=== PATIENT | male | born 1965 | race Caucasian/White ===

== ENCOUNTER 2017-12-27 08:08 | Day surgery (SDC) | payer MEDICAID ==
[~2017-12-27 08:08] MED LIST: ACETAMINOPHEN 1,000 MG/100 ML BTL IV ONE
[2017-12-27] MEDS ORDERED: FENTANYL PF 100MCG/2ML VIAL IV ONE (08:09)
[2017-12-27] MEDS ORDERED: LIDOCAINE 1% MDV (10MG/ML) 20ML VIAL SQ ONE (08:09)
[2017-12-27] MEDS ORDERED: PROPOFOL 10 MG/ML VIAL IV ONE (08:09)
[2017-12-27] MEDS ORDERED: SEVOFLURANE 250 ML INH ONE (08:09)
[2017-12-27] MEDS ORDERED: MIDAZOLAM HCL 2MG/2ML VIAL IV ONE (08:09)
[2017-12-27] MEDS ORDERED: ONDANSETRON HCL IV 4 MG/2 ML VIAL IVP ONE (08:09)
--- NOTE | 2017-12-28 12:50 | Operative Note ---
DATE OF SURGERY: 12/27/2017 Surgeon: Jake Bowens DO PREOPERATIVE DIAGNOSES: 1. Torn medial meniscus of the right knee. 2. Chondromalacia of the right knee. POSTOPERATIVE DIAGNOSES: 1. Torn lateral meniscus, right knee. 2. Synovitis, right knee. 3. Osteoarthritis, right knee. 4. Chondrocalcinosis of the right knee. OPERATION: 1. Arthroscopic partial lateral meniscectomy, right knee. 2. Arthroscopic partial synovectomy, right knee. 3. Arthroscopic chondroplasty of lateral femoral condyle, right knee. DESCRIPTION OF PROCEDURE: This 52-year-old male was taken to the operating room and placed in the supine position on the operating room table. General anesthesia was induced. The right lower extremity was elevated. It was exsanguinated and the tourniquet inflated to 300 mmHg. Arthroscopic knee ortiz applied. Right knee prepped with Hibiclens and draped in the usual sterile fashion. An inferolateral portal was established for the 4 mm arthroscope, and initial evaluation of the joint demonstrated normal appearance of the suprapatellar pouch. However, there was evidence of chondrocalcinosis on the synovium. I did not see any loose joint bodies. There was a grade 2 chondromalacia of the trochlea and the patella but it was not unstable and it was not further disturbed. Partial synovectomy was performed. The scope was then scanned down the medial gutter and into the medial compartment. The patient did not demonstrate any evidence of tears of the medial compartment and the articular cartilage appeared essentially normal other than minimal scuffing. The intracondylar notch was examined and found to be normal. The lateral compartment was entered and severe full-thickness articular cartilage loss was noted in the lateral compartment with a full-thickness defect on the medial femoral condyle as well as the tibial plateau. Marked disruption of the lateral meniscus was also identified. Chondrocalcinosis deposited on the lateral meniscus as well. A chondroplasty was performed around the edges to stabilize the articular cartilage there, and partial lateral meniscectomy was performed to remove flap tears and smooth out the contour. The meniscus originally being the least of his problems was stable but a relatively small peripheral rim was noted throughout. The patient did have severe full-thickness articular cartilage loss noted in the lateral compartment as described above. The joint was then copiously irrigated and suctioned with all areas being reexamined and no additional findings were present. The joint was suctioned. The instruments removed. The portals infiltrated with 0.25% Marcaine with epinephrine. Sterile dressings applied. Tourniquet and knee ortiz released and the patient taken to the recovery room in satisfactory condition. GROSS PATHOLOGY: This patient demonstrated advanced osteoarthritis of the lateral compartment with full-thickness articular cartilage loss being noted on both surfaces which covered the entire lateral tibial plateau and the entire weightbearing surface of the lateral femoral condyle. Tear of the lateral meniscus was present. Chondrocalcinosis also noted as described above. CC: DO GUNNER Romo
== END 2017-12-27 10:55 | disposition home or self-care (01) ==
LOC: SUR 08:08
PROVIDERS: ATTEND Orthopaedic Surgery
DX: S83.281A Other tear of lateral meniscus, current injury, right knee, initial encounter (principal); M65.861 Other synovitis and tenosynovitis, right lower leg; M17.11 Unilateral primary osteoarthritis, right knee; M11.261 Other chondrocalcinosis, right knee; E11.9 Type 2 diabetes mellitus without complications; Z79.84 Long term (current) use of oral hypoglycemic drugs
CPT/HCPCS: J2405

== ENCOUNTER 2018-01-28 13:30 | Inpatient (IN) | payer MEDICAID ==
[2018-02-05] MEDS ORDERED: ACETAMINOPHEN 1,000 MG/100 ML BTL IV ONE (06:00)
[2018-02-05] MEDS ORDERED: FAMOTIDINE 20MG TABLET PO ONE (06:00)
[2018-02-05] MEDS ORDERED: CEFAZOLIN 2 Gram 2 GM/50 ML BAG IVPB ONE (06:00)
[2018-02-05] MEDS ORDERED: MECLIZINE 25 MG TABLET PO ONE (06:00)
[2018-02-05] MEDS ORDERED: METOCLOPRAMIDE 10 MG TABLET PO ONE (06:00)
[2018-02-05] MEDS ORDERED: RINGERS SOLUTION,LACTATED 1,000 ML IV PRN (10:27)
[2018-02-05] MEDS ORDERED: OXYCODONE HCL 5 MG TABLET PO PRN ×2 (10:57)
[2018-02-05] MEDS ORDERED: LOPERAMIDE 2 MG CAPSULE PO PRN (10:59)
[2018-02-05] MEDS ORDERED: SENNOSIDES/DOCUSATE SODIUM UD CAPSULE PO PRN (11:00)
[2018-02-05] MEDS ORDERED: AL HYDROX/MAG HYDROX 30ML UD PO PRN (11:00)
[2018-02-05] MEDS ORDERED: DIPHENHYDRAMINE HCL 25 MG CAPSULE PO PRN (11:00)
[2018-02-05] MEDS ORDERED: MAGNESIUM HYDROXIDE 30 ML UDC PO PRN (11:00)
[2018-02-05] MEDS ORDERED: NALOXONE 0.4 MG/1 ML VIAL IVP PRN (11:00)
[2018-02-05] MEDS ORDERED: ONDANSETRON HCL IV 4 MG/2 ML VIAL IVP PRN (11:00)
[2018-02-05] MEDS ORDERED: METOCLOPRAMIDE HCL 10 MG/2 ML VIAL IVP PRN (11:00)
[2018-02-05] MEDS ORDERED: ZOLPIDEM TARTRATE 5 MG TABLET PO PRN (11:00)
[2018-02-05] MEDS ORDERED: TRAMADOL HCL 50 MG TABLET PO PRN ×2 (11:00)
[2018-02-05] MEDS: RINGERS SOLUTION,LACTATED 1,000 ML IV SCH (12:33)
--- NOTE | 2018-02-05 12:50 | Operative Note ---
DATE OF SURGERY: 02/05/2018 Surgeon: Jake Bowens DO PREOPERATIVE DIAGNOSIS: Osteoarthritis of the right knee. POSTOPERATIVE DIAGNOSIS: Osteoarthritis of the right knee. OPERATION: Right total knee arthroplasty. DESCRIPTION OF PROCEDURE: This 52-year-old male was taken to the operating room and placed in the supine position on the operating room table. Spinal anesthesia was induced by the department of anesthesia. The right lower extremity was then elevated. It was prepped with Hibiclens and draped in the usual sterile fashion. It was exsanguinated and the tourniquet inflated to 300 mmHg. All scrub personnel wore personal isolation suits. An anterior longitudinal midline incision was made followed by a medial parapatellar arthrotomy incision. An intracondylar drill hole was made for the intramedullary alignment kriss and a 10 mm 6-degree valgus cut was made on the distal femur. A sizing jig was affixed and a size 70 was seen to be the appropriate size. The 4-in-1 cutting block was then pinned in 3 degrees of external rotation and the appropriate cuts were made. Wafers of bone were removed. We then directed our attention to the proximal tibia, and an extramedullary alignment guide was used to cut the proximal tibia referencing an 8 mm cut off of the denuded bone on the lateral tibial plateau. The cutting block was then set at the appropriate position and subsequently a 3-degree posterior slope cut was made. Wafer of bone was removed. Remnants of the menisci and osteophytes were removed from the posterior aspect of the joint. The tibia was sized to a size 75 and the stem punch was used. Trial components were inserted and a 10 mm bearing was seen to be the appropriate thickness. The patella was cut and restored to anatomic height with a 37 x 8.6 mm patella. The knee was stable throughout the full range of motion. All the trial components were then removed and excess debris was debrided with the pulse lavage and suctioned. The bony surfaces were dried. All components were cemented into place and then the excess cement was removed after the insertion of each component. The tibia was implanted first followed by an insertion of the tibial bearing followed by the femoral component and subsequently the patella. Once the cement had hardened, the knee was again taken through range of motion with excellent stability of the components being identified. Exparel was injected into the posterior, medial, and lateral corners of the joint prior to implantation of the components. Then after the components were in, the remainder was injected into the periosteum and joint capsule of the proximal tibia and distal femur. A drain was placed through a separate stab incision, and the arthrotomy incision was closed with #2 Vicryl, the subcutaneous tissue closed with 0 Vicryl, and the skin was stapled. Sterile dressings with Polar Care were applied and the patient was taken to the recovery room in satisfactory condition. GROSS PATHOLOGY: This patient demonstrated severe osteoarthritis being full-thickness defect on the lateral femoral condyle and lateral tibial plateau with some full-thickness defects noted on the patella in the center of the median ridge. Final components inserted were a [employer] Vanguard size 70 cruciate retaining femur, a 75 tibial baseplate, a 10 mm anterior stabilized E1 bearing, and a 37 x 8.6 mm patella was used. CC: DO GUNNER Romo
[2018-02-05] MEDS ORDERED: TRANEXAMIC ACID 1,000 MG in 0.9 % SODIUM CHLORIDE 100ML 100 ML IVPB ONE (13:00)
[2018-02-05] MEDS: ACETAMINOPHEN 1,000 MG/100 ML BTL IV SCH ×2 (13:27→19:35)
--- NOTE | 2018-02-05 13:44 | Rehab Evaluation ---
Patient Information - Patient Information Diagnosis: R knee OA Ordered Treatment: PT Evaluate and Treat Status: Initial Evaluation Surgery: Yes (R TKA) Date of Surgery: 02/05/18 Past Medical/Surgical Hx: PAST MEDICAL/SURGICAL HISTORY Past Surgical History saray knee scopes radius/ulnar reconstruction left left ear sx as a child c scope x's 2 PMH - Respiratory Hx Respiratory Disorders Yes Hx Pneumonia Yes PMH - Cardiovascular Hx Cardiovascular Disorders No Exercise Tolerance Good PMH - Neuro Hx Neurological Disorders No PMH - GI Hx Gastrointestinal Disorders Yes Hx Gastroesophageal Reflux Yes: on meds good control PMH - Hx Genitourinary Disorders No Comment: on daily Cialis for ED PMH - Endocrine Hx Endocrine Disorders Yes Hx Diabetes Yes: dx'd 8 yrs ago Hx of NIDDM Yes Comment: FBS around 110 A1C 5.9 PMH - Musculoskeletal Hx Musculoskeletal Disorders Yes Hx Arthritis Yes Comment: pain right knee PMH - Psych Hx Psychiatric Problems No PMH - Hematology/Oncology Hx Hematology/Oncology No Disorders Premorbid Status: Detail (Prior to surgery the patient was independent with all mobility) Social History: Detail (The patient lives with spouse in 2 story house with 3 steps at the enterance without railings. The patient's bathroom is equipped with a walk in shower with a shower bench and a standard height toilet. The patient has a standard walker and crutches.) Precautions: [place], Fall, Other (WBAT on the R LE.) - Time With Patient Total Time Spent With Patient (Min): 30 Treatment Procedures: Detail (Initial Evaluation, gait training) Subjective Information - Subjective Information Per Patient (The patient had complaints of R knee pain level 7 at the highest.) Objective Data - Mental Status Patient Orientation: Oriented x3 - Visual Perception Appears within normal limits for therapeutic activities - ROM Not within normal limits (The patient's R knee AROM is limited as to be expected following surgery. All other LE AROM is WNL.) - Strength/Tone Not within normal limits (The patient's R LE strength was not formally tested secondary to s/p surgery, however is functional ie: patient is able to acheive a SLR. The patient's L LE strength was 5/5.) - Bed Mobility Independent (The patient was independent with supine to and from sit transfer and scooting up in bed.) - Transfers Independent (The patient was independent with sit to and from stand transfer and toilet transfer.) - Balance Balance Sitting: Good Balance Standing: Good - Sensation Intact - Gait Detail (The patient ambulated with front wheeled walker, WBAT on the R LE independently 20 feet x 1 with assist of 1 for equipment only.) Therapy Assessment - Therapy Assessment Detail (The patient was independent with bed mobility, transfers and ambulation household distances. The patient declined ambulating a further distance this afternoon due to still feeling minimal numbness in R buttock region. The patient returned to bed with CPM and pressure cuffs in place and call light within reach. Feel the patient will progress well with mobility.) Problem List - Problem List Physical Therapy Problem List: Detail (1) Decreased R knee AROM and strength 2) Non ambulatory on stairs 3) R knee pain) Goals - Goals Physical Therapy Goals: 1) The patient will ambulate with front wheeled walker a distance of 100 feet independently WBAT on the R LE. 2) The patient will ambulate on stairs with supervision for safety. 3) The patient will be independent with HEP of TKA exercises Plan - Plan Physical Therapy Plan: PT 1-2 times a day for gait training on levels and stairs and instruction in HEP until all PT goals have been met.
[2018-02-05] MEDS ORDERED: DEXAMETHASONE 4 MG/ML 1ML VIAL IVP ONE (13:55)
[2018-02-05] MEDS ORDERED: ROPIVACAINE HCL (NAROPIN) /PF 5MG/ML 20ML VIAL IV ONE (13:55)
[2018-02-05] MEDS: HYDROMORPHONE HCL 2 MG/ML VIAL IV PRN ×3 (15:05→22:18)
[2018-02-05] MEDS ORDERED: BUPIVACAINE 0.25% W/EPI MPF 30ML VIAL IVP ONE (15:47)
[2018-02-05] MEDS ORDERED: BUPIVACAINE LIPOSOME 266MG/20ML VIAL IV ONE (15:47)
[2018-02-05] MEDS ORDERED: ONDANSETRON HCL IV 4 MG/2 ML VIAL IVP ONE (16:15)
[2018-02-05] MEDS ORDERED: MIDAZOLAM HCL 2MG/2ML VIAL IV ONE (16:15)
[2018-02-05] MEDS ORDERED: LIDOCAINE 1% MDV (10MG/ML) 20ML VIAL SQ ONE (16:15)
[2018-02-05] MEDS ORDERED: PROPOFOL 10 MG/ML VIAL IV ONE (16:15)
[2018-02-05] MEDS ORDERED: FENTANYL PF 100MCG/2ML VIAL IV ONE (16:15)
[2018-02-05] MEDS: CEFAZOLIN 2 Gram 2 GM/50 ML BAG IVPB SCH (17:01)
[2018-02-05] MEDS: ASPIRIN 325 MG TAB ENTERIC-COATED PO SCH (22:19)
[2018-02-05] MEDS: NICOTINE14 MG/24 HOUR PATCH TD SCH (22:50)
[2018-02-06] MEDS: CEFAZOLIN 2 Gram 2 GM/50 ML BAG IVPB SCH ×2 (00:20→07:54)
[2018-02-06] MEDS: ACETAMINOPHEN 1,000 MG/100 ML BTL IV SCH (01:40)
[2018-02-06] MEDS: HYDROMORPHONE HCL 2 MG/ML VIAL IV PRN ×2 (02:04→05:40)
[2018-02-06] MEDS: RINGERS SOLUTION,LACTATED 1,000 ML IV SCH (05:23)
[2018-02-06 06:13] LABS: HEMATOCRIT 40.4 % (42.0-52.0); HEMOGLOBIN 13.4 gm/dl (14.0-18.0); MEAN CORPUSCULAR HEMOGLOBIN 29.5 pg (27-33); MEAN CORPUSCULAR HGB CONC 33.2 g/dl (32-36); PLATELET COUNT 218 K/uL (130-400); RED BLOOD COUNT 4.54 M/uL (4.40-5.70); RED CELL DISTRIBUTION WIDTH 12.7 % (11.5-14.5); WHITE BLOOD COUNT W/O DIFF 11.9 K/uL (4.2-12.2)
[2018-02-06] MEDS ORDERED: PANTOPRAZOLE SODIUM 40 MG TABLET PO SCH (07:00)
[2018-02-06] MEDS ORDERED: GLIPIZIDE 5 MG TABLET PO SCH (08:00)
[2018-02-06] MEDS ORDERED: METFORMIN 500 MG TABLET PO SCH (08:00)
[2018-02-06] MEDS: ASPIRIN 325 MG TAB ENTERIC-COATED PO SCH (09:44)
[2018-02-06] MEDS: NICOTINE14 MG/24 HOUR PATCH TD SCH (09:46)
--- NOTE | 2018-02-06 10:25 | Rehab Evaluation ---
Patient Information - Patient Information Diagnosis: R knee OA Ordered Treatment: OT Evaluate and Treat Status: Initial Evaluation Surgery: Yes (R TKA) Date of Surgery: 02/05/18 Past Medical/Surgical Hx: PAST MEDICAL/SURGICAL HISTORY Past Surgical History saray knee scopes radius/ulnar reconstruction left left ear sx as a child c scope x's 2 PMH - Respiratory Hx Respiratory Disorders Yes Hx Pneumonia Yes PMH - Cardiovascular Hx Cardiovascular Disorders No Exercise Tolerance Good PMH - Neuro Hx Neurological Disorders No PMH - GI Hx Gastrointestinal Disorders Yes Hx Gastroesophageal Reflux Yes: on meds good control PMH - Hx Genitourinary Disorders No Comment: on daily Cialis for ED PMH - Endocrine Hx Endocrine Disorders Yes Hx Diabetes Yes: dx'd 8 yrs ago Hx of NIDDM Yes Comment: FBS around 110 A1C 5.9 PMH - Musculoskeletal Hx Musculoskeletal Disorders Yes Hx Arthritis Yes Comment: pain right knee PMH - Psych Hx Psychiatric Problems No PMH - Hematology/Oncology Hx Hematology/Oncology No Disorders Premorbid Status: Detail (Prior to surgery the patient was independent with all mobility and I/ADL's.) Social History: Detail (The patient lives with spouse in 2 story house with 3 steps at the enterance without railings. Pt. and spouse live on the main floor. The patient's bathroom is equipped with a walk in shower with a built in shower bench, hand held shower head, and a standard height toilet. The patient has a standard walker and crutches. Pt. has assistance at home if needed (spouse and four other adults).) Precautions: [place], Fall, Other (WBAT on the R LE.) - Time With Patient Total Time Spent With Patient (Min): 20 Treatment Procedures: Detail (OT andres sargent. Session was concluded with pt. seated in arm chair, call button and bedside table within reach.) Subjective Information - Subjective Information Per Patient Objective Data - Pain Pain Present: Yes (RLE) - Mental Status Patient Orientation: Oriented x3 - Visual Perception Appears within normal limits for therapeutic activities - ROM Within normal limits (BUE) - Strength/Tone Within normal limits (BUE 5/5 MMT all planes.) - Coordination Appears within normal limits for therapeutic activities - Transfers Independent (Pt. required min A to get in/out of recliner chair but stated his recliner is different at home and won't have a problem. Once pt. was seated at edge of chair, was Ind. with sit<>stand t/f.) - Balance Balance Sitting: Good Balance Standing: Fair - ADL's/IADL's Detail (Educ. was provided in adaptive dressing techniques. Pt. demo. ability to dress TB Ind. (t-shirt, elastic waist shorts). Pt. stated he has no concerns about performing activities upon returning home, and has help if needed.) Therapy Assessment - Therapy Assessment Detail (No in-pt. OT services recommended at this time. Pt. has assistance at home if needed, a functional environmental set-up, and plans to attend out pt. therapy at [facility]. Educ. was provided to call rehab dept. if questions arise. Pt. stated he has no concerns regarding ability to perform activities at home.) Patient Education - Patient Education Teaching Topic: Exercise/Activity Response: Verbalize Understanding Teaching Method: Discussion Teaching Recipient: Patient Barriers To Learning: None Problem List - Problem List Physical Therapy Problem List: Detail (1) Decreased R knee AROM and strength 2) Non ambulatory on stairs 3) R knee pain) Goals - Goals Physical Therapy Goals: 1) The patient will ambulate with front wheeled walker a distance of 100 feet independently WBAT on the R LE. 2) The patient will ambulate on stairs with supervision for safety. 3) The patient will be independent with HEP of TKA exercises Prognosis - Prognosis Good Plan - Plan Physical Therapy Plan: PT 1-2 times a day for gait training on levels and stairs and instruction in HEP until all PT goals have been met. Occupational Therapy Plan: D/C from in-pt. OT services
[2018-02-06] MEDS ORDERED: OXYCODONE HCL/APAP 5MG/325MG TABLET PO PRN ×2 (10:57)
[2018-02-06] MEDS ORDERED: ACETAMINOPHEN 325 MG TAB PO PRN (11:00)
--- NOTE | 2018-02-06 11:03 | Physical Therapy Tx Note ---
Physical Therapy Tx Note - Treatment Note Tolerated: Good Total Time Spent With Patient: 30 Physical Therapy Tx Note: Detail (The patient was up in a recliner chair when PT arrived. The patient ambulated with standard walker a distance of 52 feet x 1 independently WBAT on the R LE. The patient declined ambulating further distance. The patient ambulated on stairs with supervision for safety only using proper technique with use of one railing and folded walker. The patient completed the following TKA exercises: seated heel slides, quad sets, gluteal sets, hamstring sets, ankle pumps and SLR with use of strap. The patient had difficulty isolating his quad and was unable to complete a SLR without assist today, probably due to increased pain complaints. The patient has met all inpatient PT goals and is discharged from inpatient PT.) Physical Therapy Problem List: Detail (1) Decreased R knee AROM and strength 2) Non ambulatory on stairs 3) R knee pain) Physical Therapy Goals: 1) The patient will ambulate with front wheeled walker a distance of 100 feet independently WBAT on the R LE. ( Goal partially met, patient declined to ambulate further distance). 2) The patient will ambulate on stairs with supervision for safety (Goal met). 3) The patient will be independent with HEP of TKA exercises (Goal met) Physical Therapy Plan: The patient has met all inpatient PT goals and is discharged from inpatient PT. The patient is to continue with outpatient PT.
--- NOTE | 2018-02-07 12:50 | Discharge Summary ---
DATE OF ADMISSION: 02/05/2018 DATE OF DISCHARGE: 02/06/2018 ADMITTING DIAGNOSIS: Osteoarthritis of the right knee. DISCHARGE DIAGNOSIS: Osteoarthritis of the right knee. OPERATIVE PROCEDURE: Elective right total knee arthroplasty. DESCRIPTION: This 52-year-old male was admitted to the hospital for total knee arthroplasty and tolerated the operative procedure well. He had his drain removed the first postoperative day. He was cleared by Physical Therapy and was ready for discharge. We have made arrangements for physical therapy to start 02/08/2018. He will wear his LAURA hose during the day and remove them at night. He was given a prescription for 40 Percocet 5/325 mg 1 every 4 hours as necessary for pain and Ultram 50 mg 1 q.4 h. p.r.n. pain, #60. Routine wound care instructions were given. He will follow up in the office in 2 weeks. He was told to take aspirin 325 mg daily. Should he have any problems prior to being seen, he was instructed to call my office. GUNNER
== END 2018-02-06 15:20 | disposition home or self-care (01) | DRG 470 ==
LOC: MEDSURG 02-05 07:11
PROVIDERS: ADMIT Orthopaedic Surgery; ATTEND Orthopaedic Surgery
PROC: 0SRC069 Replacement of Right Knee Joint with Oxidized Zirconium on Polyethylene Synthetic Substitute, Cemented, Open Approach (ICD-10-PCS; principal; 2018-02-05 09:00)
DX: M17.11 Unilateral primary osteoarthritis, right knee (principal); E11.9 Type 2 diabetes mellitus without complications; K21.9 Gastro-esophageal reflux disease without esophagitis
CPT/HCPCS: 36416; 82948; 85025; 97110; 97530; J2405; J7120